=== PATIENT | female | born 1945 | race Caucasian/White ===

== ENCOUNTER 2017-01-16 12:00 | Emergency (ER) | payer MEDICARE, BC ==
[~2017-01-16] VITALS: Ht 167.6 cm; Wt 65.8 kg
[2017-01-16] MEDS ORDERED: ONDANSETRON 4 MG/2 ML VIAL IV ONE ×2 (12:15→15:15)
[2017-01-16] MEDS ORDERED: MORPHINE SULFATE 2 MG/1 ML DISP.SYRIN IV ONE (12:15)
[2017-01-16] MEDS ORDERED: MORPHINE SULFATE 4 MG/1 ML DISP.SYRIN ONE ×2 (12:28→15:34)
[2017-01-16] MEDS ORDERED: ONDANSETRON 4 MG/2 ML VIAL ONE ×3 (12:28→15:34)
[2017-01-16] MEDS ORDERED: IV NORMAL SALINE 250 ML IV ONE (12:29)
[2017-01-16] MEDS ORDERED: IOHEXOL 300MG/ML 100 ML INFUS..BTL ONE (12:29)
[2017-01-16 12:42] LABS: BASOPHILS % (AUTO) 0.6 % (0.0-2.0); EOSINOPHILS # (AUTO) 0.1 K/uL (0.0-0.7); EOSINOPHILS % (AUTO) 1.2 % (0.0-7.0); HEMATOCRIT 43.5 % (31.2-41.9); HEMOGLOBIN 14.6 g/dL (10.9-14.3); LYMPHOCYTES # (AUTO) 1.1 K/uL (20.0-40.0); LYMPHOCYTES % (AUTO) 18.5 % (20.5-51.5); MEAN CORPUSCULAR HEMOGLOBIN 30.8 uug (24.7-32.8); MEAN CORPUSCULAR HGB CONC 34 g/dL (32.3-35.6); MONOCYTES # (AUTO) 0.3 K/uL (2.0-10.0); MONOCYTES % (AUTO) 5.4 % (0.0-11.0); NEUTROPHILS # (AUTO) 4.5 K/uL (1.8-8.9); NEUTROPHILS % (AUTO) 74.3 % (38.5-71.5); PLATELET COUNT (AUTO) 196 K/uL (179-408); RED BLOOD CELL COUNT(AUTO) 4.73 MIL/uL (3.63-4.92)
[2017-01-16 12:55] LABS: CREATININE 0.7 mg/dL (0.6-1.3); POTASSIUM 3.4 mmol/L (3.5-5.1)
--- NOTE | 2017-01-16 13:20 | NUR ---
Pt back from CT, NAD noted.
[2017-01-16] MEDS ORDERED: ONDANSETRON IV *ER 4 MG/2 ML VIAL IV ONE (14:15)
--- NOTE | 2017-01-16 14:20 | NUR ---
Pt resting in [place] and talking on cell phone with NAD noted. Family at bedside. Dr. Cai spoke with Dr. Sanchez (neuro) via telephone.
--- NOTE | 2017-01-16 14:30 | NUR ---
Per Dr. Cai pt to be trans to [facility] for higher level of care under care of
--- NOTE | 2017-01-16 15:00 | NUR ---
Spoke with Eloise at [facility] who stated they are currently working on the case and will call back with further information.
[2017-01-16] MEDS ORDERED: MORPHINE SULFATE 4 MG/1 ML DISP.SYRIN IV ONE (15:15)
[2017-01-16] MEDS ORDERED: IBUPROFEN 600 MG TABLET PO (15:21)
[2017-01-16] MEDS ORDERED: PANTOPRAZOLE 40MG TABLETS (15:21)
[2017-01-16] MEDS ORDERED: PROLIA 60 MG/ML SYRINGE IM (15:21)
[2017-01-16] MEDS ORDERED: ZOLPIDEM 5 MG (15:21)
[2017-01-16] MEDS ORDERED: ETAN25KI2 IM (15:24)
[2017-01-16] MEDS ORDERED: BALS750C7 PO (15:24)
[2017-01-16] MEDS ORDERED: ACET-2605 PO (15:25)
--- NOTE | 2017-01-16 15:40 | NUR ---
Received call from [facility] who stated they have accepted the pt, pt will go to room 4414, for report, they have arranged transport with [facility] with eta of one hour.
--- NOTE | 2017-01-16 16:20 | NUR ---
SBAR report given to Mariola at [facility] ([phone]) via telephone.
--- NOTE | 2017-01-16 17:15 | NUR ---
Pt trans to [facility] via [facility], NAD noted upon transfer, family with pt.
== END 2017-01-16 17:16 | disposition short-term general hospital (02) ==
LOC: ER 12:05
DX: S12.9XXA Fracture of neck, unspecified, initial encounter (principal); K80.20 Calculus of gallbladder without cholecystitis without obstruction; V43.52XA Car driver injured in collision with other type car in traffic accident, initial encounter; Y93.89 Activity, other specified; Y99.8 Other external cause status; Y92.89 Other specified places as the place of occurrence of the external cause
CPT/HCPCS: 36415; 70450; 71010; 71260; 72125; 74177; 80048; 85025; 85730; 86850; 86900; 86901; 96374; 96375; 96376; 99285; A4663; J2270 ×2; J2405 ×3; J7050; Q9967